=== PATIENT | male | born 1995 ===

== ENCOUNTER 2025-01-06 07:14 | Outpatient (REF) | payer OTHER, SELFPAY ==
--- OUTSIDE RECORDS SUMMARY | 2025-01-06 08:39 | XMS_ITS | Clinical Summary ---
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 Role Phone Unavailable Primary Care Provider Unavailabl e Encounters Date Type Department Care Team Description 10/23/2024 Telephone [facility] [address] [place] [address] Iraj Jimenez MD from Last 3 Months Social History Tobacco Use Types Packs/Day Years Used Date Smoking Tobacco: Never Assessed Sex and Gender Information Value Date Recorded Sex Assigned at Male 05/15/2024 2:16 PM EDT Legal Sex Male 2:15 PM EDT Gender Identity Male 05/15/2024 2:16 PM EDT Sexual Orientation Not on file Plan of Treatment Health Maintenance Due Date Last Done Comments Depression Screening 1995 HIV Screening 1995 SDOH Screening 1995 Alcohol/Substance Use Screening 2007 Tobacco Screening 2007 Family Planning (PISQ) 2010 Hepatitis C Screening 2013 DTaP/Tdap/Td Vaccines (1 - Tdap) 2014 Hepatitis B Vaccines (1 of 3 - 19+ 3-dose series) 2014 COVID-19 Vaccine (1 - 2023-2 5 season) 2024 Influenza Vaccine (#1) 2024 Zoster Vaccines (1 of 2) 2045 RSV Patients and Pa tients Aged 60 years or older (1 - 1-dose 75+ series) 2070 HIB Vaccines Aged Out No longer eligi ble based on patient's age to complete this topic HPV Vaccines Aged Out No longer eligi ble based on patient's age to complete this topic Hepatitis A Vaccines Aged Out No long er eligible based on patient's age to complete this topic IPV Vaccines Aged Out No longer eligi ble based on patient's age to complete this topic Meningococcal Vaccine Aged Out No aleta eloise eligible based on patient's age to complete this topic Pneumococcal Vaccine: Pediat rics (0 to 5 Years) and At-Risk Patients (6 to 49) Years) Aged Out No longer eligible b ased on patient's age to complete this topic RSV under 20 months Aged Out No longe r eligible based on patient's age to complete this topic Rotavirus Vaccines Aged Out No longer eligible based on patient's age to complete this topic
--- OUTSIDE RECORDS SUMMARY | 2025-01-06 08:39 | XMS_ITS | Clinical Summary ---
Author Organization [facility] Address [address] [place] [address] Care Team Providers Care Shoe Lacer Name Role Phone Jorge Delvalle PA-C Primary [...] 02/02/2023, 06/11/2021 Syphilis Screening 02/03/2024 02/02/2023, 06/11/2021 [id number] ( season) 2024 07/21/2022, 07/01/2021, 12/04/2020, Additional [...] HEPATITIS C ANTIBODY NON-REACT ARIANA NON-REACT ARIANA [employer] SIGNAL TO CUT-OFF 0.16 <1.00 [employer] Comment: HCV antibody was non-reactive. There is no laboratory evidence of HCV infection. In most cases, no further action is required. However, if recent HCV exposure is suspected, a test for HCV RNA (test code 82818) is suggested. For additional information please refer to http://education.Moleculin/faq/JYQ84h1 (This link is being provided for informational/ educational purposes only.) Blood Blood / Unknown 02/02/2023 1 0:33 AM EDT 02/02/2023 10:34 AM EDT Narrative [employer] [facility] - 02/03/2023 5:14 AM EDT FASTING:YES [facility] [[email or web address]]or Wyatt Laila FNP LAB - BLOOD DRAW E dited Result - Final Performing Organization Address [facility] de Phone Number [employer] [address] [address], [employer] [address] [address] * SYPHILIS ANTIBODY CASCADING REFLEX (02/02/2023 10:33 AM EDT) T. PALLIDUM AB, EIA NEGATIVE NEGATIVE [employer] [facility] Comment: No antibodies to T. pallidum (the agent causing syphilis) were detected in the specimen. This result, however, does not exclude very recent T. pallidum infection; testing of a second specimen, collected 2-4 weeks after this specimen, is recommended if the index of suspicion for recent infection is high. Blood Blood / Unknown 02/02/2023 1 0:33 AM EDT 02/02/2023 10:34 AM EDT [facility] [employer] [facility] - 02/03/2023 5:14 AM EDT FASTING:YES [facility] - BLOOD DRAW F inal Result Performing Organization Address [facility] de Phone Number [employer] [address] [address], [employer] [address] [address] * HIV 1/2 AG & AB W/RFLX (4TH GEN) (02/02/2023 10:33 AM EDT) HIV AG/AB, 4TH GEN NON-REAC TIVE NON-REAC TIVE [employer] [facility] Comment: HIV-1 antigen and HIV-1/HIV-2 antibodies [...] ?? For additional information please refer to http://education.Moleculin/faq/UIY706 (This link is being provided for informational/ educational purposes only.) The performance of this assay has not been clinically validated in patients less than 2 years old. Blood Blood / Unknown 02/02/2023 1 0:33 AM EDT 02/02/2023 10:34 AM EDT Narrative [employer] - 02/03/2023 5:14 AM EDT FASTING:YES us Guy Ulloa [facility] LAB - BLOOD DRAW F inal Result Performing Organization Address City/[facility]/ZIP Co de Phone Number [facility] [address] [place] [address], [employer] [address] [address] * HEPATITIS B SURF ANTIBODY HBSAB (02/02/2023 10:33 AM EDT) HEPATITIS B SURFACE ANTIBODY QL NON-REACT ARIANA NON-REACT ARIANA [employer] [facility] Blood Blood / Unknown 02/02/2023 1 0:33 AM EDT 02/02/2023 10:34 AM EDT Narrative [employer] - 02/03/2023 5:14 AM EDT FASTING:YES us Guy Ulloa [employer] LAB - BLOOD DRAW E dited Result - Final Performing Organization Address City/[facility]/ZIP Co de Phone Number [facility] [address] [place] [address], [employer] [address] [address] from Last 3 Months or Most Recently Relevant to Health Maintenance Care Teams Shoe Lacer Relationship Specialty Start Date End Date Jorge Delvalle PA-C [address] [place] [address] PCP - General FAMILY MEDICINENUBIA 06/10/21
[2025-01-06 08:44] LABS: MANUAL DIFF FLAG NO
[2025-01-06 08:54] LABS: Basophils Percent Auto 0.6 % (0-2); Eosinophils Absolute Auto 0.1 X10*3/uL (0.0-0.4); Eosinophils Percent Auto 2.3 % (0-4); Hematocrit 43.1 % (42.0-52.0); Hemoglobin 14.7 g/dl (14.0-18.0); Imm Gran Abs Auto 0.01 X10*3/uL (0.00-0.03); Imm Gran Pct Auto 0.2 % (0.0-0.4); Lymphocytes Absolute Auto 1.5 X10*3/uL (1.2-4.9); Lymphocytes Percent Auto 30.7 % (20-40); Mean Corpuscular HGB Conc 34.1 g/dl (31.0-36.0); Mean Corpuscular Hemoglobin 29.3 pg (27.0-33.0); Mean Platelet Volume 9.6 fL (9.4-12.4); Monocytes Absolute Auto 0.4 X10*3/uL (0.1-1.2); Monocytes Percent Auto 8.6 % (2-11); Neutrophils Absolute Auto 2.7 x10*3/uL (2.0-8.3); Neutrophils Percent Auto 57.6 % (45-73); Platelet Count 249 X10*3/uL (160-400); Red Blood Count 5.01 X10*6/uL (4.60-5.80); White Blood Count 4.8 X10*3/uL (4.8-10.8)
[2025-01-06 09:17] LABS: Alanine Aminotransferase 32 U/L (0-40); Albumin Level 4.5 g/dL (3.5-5.0); Alkaline Phosphatase 73 U/L (39-117); Anion Gap 12 (12-20); Aspartate Amino Transferase 34 U/L (5-37); Bilirubin Total 0.5 mg/dL (0.0-1.0); Blood Urea Nitrogen 14 mg/dL (9-16); Calcium 9.4 mg/dL (8.4-10.2); Carbon Dioxide 28 mmol/L (22-29); Chloride 107 mmol/L (96-108); Cholesterol 175 mg/dL (<200); Estimated Glomerular Filt Rate > 60; Glucose Fasting 94 mg/dL (60-99); HDL Cholesterol 40 mg/dL (>40); LDL Cholesterol Calculated 118 mg/dL (<100); Potassium 4.6 mmol/L (3.3-5.1); Sodium 142 mmol/L (135-145); Triglycerides 88 mg/dL (<150)
[2025-01-06 09:38] LABS: HIV AB/AG Nonreactive (Nonreactive); HIV Num 1 0.08 S/CO (0.00-0.99)
== END 2025-01-06 07:15 | disposition home or self-care (01) ==
LOC: HO.LAB 07:14
PROVIDERS: PCP Internal Medicine; Visit Provider Internal Medicine
DX: Z00.00 Encounter for general adult medical examination without abnormal findings (principal); F33.0 Major depressive disorder, recurrent, mild; G44.52 New daily persistent headache (NDPH); E78.5 Hyperlipidemia, unspecified; N48.89 Other specified disorders of penis; M79.675 Pain in left toe(s); M79.674 Pain in right toe(s); Z11.4 Encounter for screening for human immunodeficiency virus [HIV]
CPT/HCPCS: 36415; 80053; 80061; 85025; 87389; 96127

== ENCOUNTER 2025-01-06 07:14 | Outpatient (AMB) | payer OTHER, SELFPAY ==
--- OUTSIDE RECORDS SUMMARY | 2025-01-06 07:17 | XMS_ITS | Clinical Summary ---
Author Organization [facility] Address [address] [place] [address] Care Team Providers Care Boom Pump Operator Name Role Phone Jorge Delvalle PA-C Primary Care Provider Source Comments PLEASE NOTE, if this patient is a minor, it may be UNLAWFUL to discuss sensitive information that is contained in these records (such as FAMILY PLANNING, MENTAL HEALTH or SUBSTANCE ABUSE) with the minor patient's parent or other person without the patient's specific authorization.[facility] Allergies No known active allergies Medications No known medications Active Problems No known active problems Immunizations Immunization Administration Dates Next Due Flu, Cell Culture based, Pre servative Free, 6m+, Flucelvax 06/01/2021,06/27/2019 HPV 9 (Gardasil) 08/30/2021 Moderna COVID-19 Vaccine, re d cap blue label, 12+ Primary Series 07/01/2021,12/04/2020,11/07/2020 TDAP 08/30/2021 Family History Medical History Relation Name Comments Thyroid Disease Brother Cardiovascular disease Father has d efibirllator Diabetes Father Breast cancer Maternal Aunt Hypertension Mother Thyroid Disease Mother Breast cancer Paternal Aunt Thyroid Disease Sister Relation Name Status Comments Brother Father Maternal Aunt Mother Paternal Aunt Sister Social History Tobacco Use Types Packs/Day Years Used Date Smoking Tobacco: Never Smokeless Tobacco: Never Tobacco Cessation:Counseling Given: Not Answered Alcohol Use Standard Drinks/Week Comments Yes 0 (1 standard drink = 0.6 oz pur e alcohol) only on weekends Social Connections Answer Date Recorded Connectedness 0 02/02/2023 Financial Resource Strain Answer Date R ecorded Financial Resource Strain 0 2022 Stress Answer Date Recorded Stress 0 02/02/2023 Physical Activity Answer Date Recorded Physical Activity 0 11/07/2020 Food Insecurity Answer Date Recorded Food 0 02/02/2023 Transportation Needs Answer Date Record ed Transportation 0 02/02/2023 Housing Stability Answer Date Recorded Housing 0 02/02/2023 Safety and Environment Answer Date Alan rded Safety 0 02/02/2023 Utilities Answer Date Recorded Utilities 0 02/02/2023 Employment Answer Date Recorded Employment 0 11/07/2020 Sex and Gender Information Value Date Recorded Sex Assigned at Male 06/10/2021 1:00 PM PDT Legal Sex Male 1:55 PM PST Gender Identity Male 06/10/2021 1:00 PM PDT Sexual Orientation [place] 06/10/2021 1: 00 PM PDT 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 Not on file Not on file Last Filed Vital Signs Vital Sign Reading Time Taken Comments Blood Pressure 106/72 02/02/2023 9:52 AM EDT Pulse 72 02/02/2023 9:52 AM EDT Temperature 36.7 ??C (98 ??F) 02/18/2022 10:46 AM EDT Respiratory Rate 16 02/02/2023 9:52 AM EDT Oxygen Saturation 99% 02/02/2023 9:52 AM EDT Inhaled Oxygen Concentration - - Weight 72.1 kg (159 lb) 02/02/2023 9:52 AM EDT Height 167.6 cm (5' 6 ) 02/02/2023 9:52 AM EDT Body Mass Index 25.66 02/02/2023 9:52 AM EDT Plan of Treatment Health Maintenance Due Date Last Done Comments Anxiety Screening 1995 Tobacco Screening 1995 Imm-Hepatitis A (1 of 2 - Ri sk 2-dose series) 2014 Imm-Hepatitis B (1 of 3 - 19 + 3-dose series) 2014 Annual Preventive Care Visit 02/03/2024 02/02/2023, 08/30/2021 HIV Screening 02/03/2024 02/02/2023, 06/11/2021 Syphilis Screening 02/03/2024 02/02/2023, 06/11/2021 Pof-[id number] ( season) 2024 07/21/2022, 07/01/2021, 12/04/2020, Additional history exists Imm-Influenza (#1) 2024 05/31/2022, 0 06/01/2021, 06/27/2019 Alcohol and Drug Screen 09/04/2024 02/03/20 23, 02/18/2022, 06/10/2021 Depression Annual Screen 09/04/2024 02/02/2023 Hypertension Screening (#1) 02/01/2026 Imm-DTaP/Tdap/Td (2 - Td or Tdap) 08/30/2031 Hepatitis B Screening Completed 02/02/2023, Hepatitis C Screening Completed 02/02/2023, Procedures Procedure Name Priority Date/Time Associated Diagnosis Comments HIV 1/2 AG & AB W/RFLX (4TH GEN) Routine 02/02/2023 10:33 AM EDT Examination, medical, general SYPHILIS ANTIBODY CASCADING REFLEX Routine 02/02/2023 10:33 AM EDT Examination, medical, general HEPATITIS B SURF ANTIBODY HBSAB Routine 02/02/2023 10:33 AM EDT Examination, medical, general HEPATITIS C AB W/RFLX HCV RNA, QT, RT PCR Routine 02/02/2023 10:33 AM EDT Examination, medical, general from Last 3 Months or Most Recently Relevant to Health Maintenance Results * HEPATITIS C AB W/RFLX HCV RNA, QT, RT PCR (02/02/2023 10:33 AM EDT) HEPATITIS C ANTIBODY NON-REACT ARIANA NON-REACT ARIANA [facility] SIGNAL TO CUT-OFF 0.16 <1.00 [facility] Comment: HCV antibody was non-reactive. There is no laboratory evidence of HCV infection. In most cases, no further action is required. However, if recent HCV exposure is suspected, a test for HCV RNA (test code 84701) is suggested. For additional information please refer to http://education.[employer]/faq/LOY83p0 (This link is being provided for informational/ educational purposes only.) Blood Blood / Unknown 02/02/2023 1 0:33 AM EDT 02/02/2023 10:34 AM EDT Narrative [employer] [facility] - 02/03/2023 5:14 AM EDT FASTING:YES [facility] F[facility] LAB - BLOOD DRAW E dited Result - Final Performing Organization Address [facility] de Phone Number [facility] [address] [address], [facility] [address] [phone] * SYPHILIS ANTIBODY CASCADING REFLEX (02/02/2023 10:33 AM EDT) T. PALLIDUM AB, EIA NEGATIVE NEGATIVE [employer] [facility] Comment: No antibodies to T. pallidum (the agent causing syphilis) were detected in the specimen. This result, however, does not exclude very recent T. pallidum infection; testing of a second specimen, collected 2-4 weeks after this specimen, is recommended if the index of suspicion for recent infection is high. Blood Blood / Unknown 02/02/2023 1 0:33 AM EDT 02/02/2023 10:34 AM EDT [facility] [employer] [facility] - 02/03/2023 5:14 AM EDT FASTING:YES [facility] B[facility] DRAW F inal Result Performing Organization Address [facility] de Phone Number [facility] [address] [address], [facility] [address] [address] * HIV 1/2 AG & AB W/RFLX (4TH GEN) (02/02/2023 10:33 AM EDT) HIV AG/AB, 4TH GEN NON-REAC TIVE NON-REAC TIVE [facility] Comment: HIV-1 antigen and HIV-1/HIV-2 antibodies were not detected. There is no laboratory evidence of HIV infection. PLEASE NOTE: This information has been disclosed to you from records whose confidentiality may be protected by state law. ??If your state requires such protection, then the state law prohibits you from making any further disclosure of the information without the specific written consent of the person to whom it pertains, or as otherwise permitted by law. A general authorization for the release of medical or other information is NOT sufficient for this purpose. ?? For additional information please refer to http://education.[employer]/faq/TCJ856 (This link is being provided for informational/ educational purposes only.) The performance of this assay has not been clinically validated in patients less than 2 years old. Blood Blood / Unknown 02/02/2023 1 0:33 AM EDT 02/02/2023 10:34 AM EDT Narrative [facility] - 02/03/2023 5:14 AM EDT FASTING:YES us Guy Ulloa [facility] LAB - BLOOD DRAW F inal Result Performing Organization Address City/[facility]/ZIP Co de Phone Number [facility] [address] [place] [phone], [facility] [address] [address] * HEPATITIS B SURF ANTIBODY HBSAB (02/02/2023 10:33 AM EDT) HEPATITIS B SURFACE ANTIBODY QL NON-REACT ARIANA NON-REACT ARIANA [employer] [facility] Blood Blood / Unknown 02/02/2023 1 0:33 AM EDT 02/02/2023 10:34 AM EDT Narrative [employer] - 02/03/2023 5:14 AM EDT FASTING:YES us Guy Ulloa [facility] LAB - BLOOD DRAW E dited Result - Final Performing Organization Address City/[facility]/ZIP Co de Phone Number [facility] [address] [place] [phone], [facility] [address] [phone] from Last 3 Months or Most Recently Relevant to Health Maintenance Care Teams Boom Pump Operator Relationship Specialty Start Date End Date Jorge Delvalle PA-C [address] [place] [address] PCP - General [facility]ILY MEDICIN[facility] 06/10/21
[2025-01-06 07:41] VITALS: BP 108/70; BMI 26.5
--- NOTE | 2025-01-06 07:41 | MHC.PC.OV ---
Vital Signs 01/06/25 07:41 Height 5 ft 7.32 in Weight 171 lb BMI 26.5 BP 108/70 Blood Pressure Location Lt brachial Position Sitting Intake Visit Reasons: New Appt New Patient requesitng an PE Viscose Department Worker Required: No Accompanied by: Self / Same As Patient Allergies No Known Allergies Allergy (Verified 01/06/25 07:51) Medication List - Last Reconciled 01/06/25 by Micki Torres MD No Known Home Meds Tobacco use date assessed: 01/06/25 Dental Screening Dental Screen Date: 01/06/25 Did you have a dental visit in the last 12 months?: Yes Did you have a dental problem in the last 6 months where you did not have access to dental care?: No Was dental information given to patient?: Patient has dentist HPI HPI Comments History of Present Illness Details The patient is a 29-year-old male presenting with persistent headaches and mild depression for new patient physical exam. He reports that the headaches began following an episode of influenza in October, which was severe enough to warrant emergency care. The headaches are described as severe and generalized, severely affecting his ability to concentrate and perform daily activities. Associated symptoms include nausea and blurry vision. The headaches are daily and incapacitating at times, leading to missed work. In addition, the patient reports mild depression, with a PHQ-9 score reflecting this. The depression is related to a recent breakup, though it does not significantly impact his daily responsibilities. The patient's past medical history includes childhood asthma, though he denies recent asthma exacerbations. He does not smoke and drinks alcohol only on special occasions. Family history reveals several chronic conditions: his mother suffers from hypertension, thyroid problems, and chronic kidney disease, among others; his father has diabetes, arthritis, and heart conditions managed with a pacemaker.- MRI of the head was discussed to investigate persistent headaches. - Cholesterol, blood sugar, renal and liver function screenings were recommended. - Assessment of urologic health was suggested due to reported discomfort. - Tetanus vaccination status was reviewed, presumed updated approximately 5-6 years ago at previous employment. [facility] Surgical History No pertinent past surgical history Family History (Updated 01/06/25 @ 07:58 by Micki Torres MD) Mother Hypothyroidism Hypertension Carpal tunnel syndrome Gout CKD (chronic kidney disease) Father Diabetes Glaucoma CKD (chronic kidney disease) Pacemaker CHF (congestive heart failure) Social History Housing: House Alcohol intake: current Alcohol intake frequency: holidays/special occasions only Alcohol type: beer and wine Patient Tobacco Use Status: Never used Tobacco e-Cigarette/Vaping Use: Never Used Second Hand Smoke Exposure: No service: No Current occupational status: employed Current occupational exposures/hazards: No Cognitive needs: No Hearing needs: No Vision needs: No Questionnaire PHQ-9 Over the last 2 weeks, how often have you been bothered by any of the following problems? 1. Little interest or pleasure in doing things: not at all 2. Feeling down, depressed, or hopeless: not at all 3. Trouble falling or staying asleep, or sleeping too much: not at all 4. Feeling tired or having little energy: more than half the days 5. Poor appetite or overeating: several days 6. Feeling bad about yourself - or that you are a failure or have let yourself or your family down: not at all 7. Trouble concentrating on things, such as reading the newspaper or watching television: more than half the days 8. Moving or speaking so slowly that other people could have noticed. Or the opposite - being so fidgety or restless that you have been moving around a lot more than usual: several days 9. Thoughts that you would be better off or of hurting yourself in some way: not at all Total score: 6 Depression Screening Interpretation: Positive Depression Screening Follow-up: Existing condition, New Medication prescribed and Follow-up Visit Requested Depression Screening Done: Yes 58635 - PHQ-9 Billing: Yes Source: Developed by Drs. Wyatt Nash, Gabi Barfield, George Adair and colleagues, with an educational vinicio from [employer]. Thrive Questionnaire Date Thrive assessed: 01/06/25 I am a: Patient What is your living situation today?: I have a steady place to live Within the past 12 months, did the food you bought not last and you didn't have the money to get more?: I choose not to answer this question Within the past 12 months, did you worry whether your food would run out before you got money to buy more?: I choose not to answer this question Do you have trouble paying for medicines?: I choose not to answer this question Do you have trouble getting transportation to medical appointments?: I choose not to answer this question Do you have trouble paying your heating and electricity bill?: I choose not to answer this question Do you have trouble taking care of your child, family member or friend?: I choose not to answer this question Do you have trouble with day-to-day activities such as bathing, preparing meals, shopping, managing finances, etc.?: I choose not to answer this question Are you currently unemployed and looking for a job?: I choose not to answer this question Are you interested in more education?: I choose not to answer this question Please select the resources that you would like help with: None Currently or been in a relationship where the following occur: I choose not to answer THRIVE Score: 0 AUDIT C Alcohol Use Questionnaire (AUDIT-C) 1. How often do you have a drink containing alcohol?: Monthly or less 2. How many drinks containing alcohol do you have on a typical day when you are drinking?: 3 or 4 3. How often do you have six or more drinks on one occasion?: Never Total Score: 2 Score Reviewed/Action Taken: No TIEN-7 AMB Questionnaire TIEN-7 Date TIEN - 7 assessed: 01/06/25 Feeling nervous, anxious, or on edge: 0 = Not at all Not being able to stop or control worryin = Not at all Worrying too much about different things: 0 = Not at all Trouble relaxin = Not at all Being so restless that it is hard to sit still: 1 = Several days Becoming easily annoyed or irritable: 0 = Not at all Feeling afraid as if something awful might happen: 0 = Not at all Total TIEN-7 score (0-4 normal; 5-9 mild; 10-14 moderate; 15-21 severe): 1 Source: Developed by Drs. Wyatt Nash, Gabi Barfield, George Adair and colleagues, with an educational vinicio from [employer]. TIEN-7 Assessment Billing TIEN-7 Assessment Tool: TIEN-7 Assessment 96838 Review of Systems Const All systems reviewed & are unremarkable except as noted in HPI and below Card Denies chest pain at rest, Denies chest pain with activity, Denies edema, Denies irregular heart rhythm, Denies claudication, Denies dyspnea, Denies dyspnea on exertion, Denies orthopnea, Denies paroxysmal nocturnal dyspnea and Denies slow heart rate Resp Denies cough, Denies dyspnea and Denies dyspnea on exertion GI Denies abdominal pain, Denies change in bowel habits, Denies excessive flatus, Denies nausea and Denies vomiting Denies urinary hesitancy, Denies urinary incontinence and Denies urinary urgency Musc Denies abnormal gait, Denies atrophy, Denies deformity and Denies limited range of motion Skin/Breast Denies bleeding lesions, Denies changing lesions and Denies rash Neuro Denies abnormal gait and Denies lack of coordination Physical exam (Primary Care) Vital Signs: Last Vital Signs BP 108/70 01/06/25 07:41 BMI result Body Mass Index 26.5 Tobacco/Smoking Status: Tobacco use Status Tobacco use date assessed 01/06/25 01/06/25 07:48 Patient Tobacco Use Status Never used Tobacco 01/06/25 07:48 e-Cigarette/Vaping Use Never Used 01/06/25 07:48 PHQ-9: PHQ-9 Score PHQ-9: Total score 6 01/06/25 07:48 Depression Screening Interpretation: Positive Depression Screening Follow-up: Existing condition, New Medication prescribed and Follow-up Visit Requested Thrive Assessment: Date of Thrive Assessment Date Thrive assessed 01/06/25 01/06/25 07:48 Currently or been in a relationship where the following occur: I choose not to answer [facility] Head: Yes normal to inspection, Yes normocephalic and Yes atraumatic Ears: external ears normal Eyes General: appearance normal, both eyes and all related structures Eyelids: Yes eyelids normal Conjunctivae: conjunctivae normal Neck Neck: Yes normal visual inspection and Yes supple Resp Effort & Inspection: normal respiratory effort Auscultation: clear to auscultation bilaterally Cardio Jugular venous distension: no JVD Rate: regular rate Rhythm: regular rhythm Heart sounds: S1 normal heart sound present and S2 normal heart sound present GI Inspection: Yes normal to inspection Palpation (GI): Soft to palpation and nontender Auscultation: normal bowel sounds Skin General skin exam: no rashes or lesions noted Neuro General: no focal motor deficits Extrem General: Yes full ROM Psych Appearance: grossly normal Coding Level of Care Code New Pt Level 4 (38862) New Pt Prev Care 18-39yr(71955 Diagnoses Physical exam Z00.00 Mild recurrent major depression F33.0 New daily persistent headache G44.52 Pain around toenail M79.676 Pain in penis N48.89 Additional Codes PHQ-9 - 29690 - PHQ-9 Billing: Yes ([id number]) TIEN-7 Assessment Billing - TIEN-7 Assessment Tool: TIEN-7 Assessment 30854 ([id number]) Time Spent (min) 35 Assessment & Plan Assessment & Plan (1) Physical exam: Code(s): Z00.00 - Encounter for general adult medical examination without abnormal findings Category: Medical (2) Mild recurrent major depression: Code(s): F33.0 - Major depressive disorder, recurrent, mild Category: Medical (3) New daily persistent headache: Code(s): G44.52 - New daily persistent headache (NDPH) Category: Medical (4) Pain around toenail: Code(s): M79.676 - Pain in unspecified toe(s) Category: Medical (5) Pain in penis: Code(s): N48.89 - Other specified disorders of penis Category: Medical Plan We will proceed with an MRI of the head to assess the structural causes behind the patient's post-influenza headaches. A medication that assists with both mild depression and migraine prevention will be started at a low dose. The patient is advised to undergo screening for cholesterol, glucose, and renal and liver function due to family medical history. A urology consult is advised for further evaluation of his symptoms. The patient's tetanus vaccination status seems current, but will be verified to avoid gaps in protection. Patient was informed and verbally consented to the use of an ambient scribe for clinic note documentation during this visit. I discussed with the patient the potential for migraine due to the nature and persistence of his headaches, exacerbated by a recent influenza episode. We agreed on conducting an MRI to rule out any concerning causes. The medication suggested could also address his mild depression and improve sleep quality, offering him a multi-benefit approach. We reviewed the benefits and risks of medication, emphasizing the importance of monitoring both the effectiveness on headaches and any impact on mood. Due to his family's medical history, we emphasized preventative screening tests. We outlined the necessity of updating vaccinations and agreed to verify his tetanus status. The patient was encouraged to seek a urological evaluation to further investigate his symptoms and follow up as necessary. Orders: Orders MR head/brain wo con Today G44.52 - New daily persistent headache (NDPH) Lipid Panel Today E78.5 - Hyperlipidemia, unspecified, Z00.00 - Encounter for general adult medical examination without abnormal findings Comprehensive [place]. Panel Fast Today Z00.00 - Encounter for general adult medical examination without abnormal findings Complete Blood Count Auto Diff Today G44.52 - New daily persistent headache (NDPH) HIV Ab/Ag Today Z11.4 - Encounter for screening for human immunodeficiency virus [HIV] Referrals Podiatry Referral M79.676 - Pain in unspecified toe(s) Urology Referral N48.89 - Other specified disorders of penis Medications: New sumatriptan succinate do not exceed 8 doses per 24 hrs 25 mg PO Q2-4H 30 days PRN 9 tabs 0RF migraine headache G44.52 - New daily persistent headache (NDPH) amitriptyline 10 mg PO BEDTIME 30 days 30 tabs 6RF F33.0 - Major depressive disorder, recurrent, mild, G44.52 - New daily persistent headache (NDPH) Patient Instructions: - Complete the MRI of the head as scheduled. - Take the prescribed headache/mood medication as directed. - Schedule and complete lab tests for cholesterol, blood sugar, liver, and kidney function. - Maintain a schedule for the urology appointment. - Stay aware of any changes in symptoms or new developments, and follow up accordingly. - Ensure tetanus vaccination is current; update if necessary. - Return for any concerning symptoms or if conditions worsen.
== END 2025-01-06 08:10 | disposition home or self-care (01) ==
LOC: HO.HMCH 07:15
PROVIDERS: PCP Internal Medicine; Visit Provider Internal Medicine
DX: Z00.00 Encounter for general adult medical examination without abnormal findings (principal); F33.0 Major depressive disorder, recurrent, mild; G44.52 New daily persistent headache (NDPH); N48.89 Other specified disorders of penis; M79.675 Pain in left toe(s); M79.674 Pain in right toe(s)

== ENCOUNTER → 2025-01-21 07:18 | Outpatient (BNV) | payer OTHER, SELFPAY | PROVIDERS: PCP Internal Medicine; Visit Provider Radiology Diagnostic Radiology | DX: G44.52 New daily persistent headache (NDPH) (principal) | CPT/HCPCS: 70551 ==

== ENCOUNTER 2025-01-21 07:22 | Outpatient (REF) | payer OTHER, SELFPAY ==
--- NOTE | ~2025-01-21 | MR_ITS ---
EXAMINATION: MR BRAIN WITHOUT IV CONTRAST HISTORY: G44.52 - New daily persistent headache (NDPH) TECHNIQUE: Sagittal T1 and FLAIR, and axial T1, FLAIR, T2, gradient echo, and diffusion weighted MR images of the brain were obtained. COMPARISON: None FINDINGS: There is a developmental venous anomaly in the right frontal lobe. The brain parenchyma is otherwise unremarkable, demonstrating normal alexander/white differentiation. No foci of abnormal signal intensity are identified. The ventricular system is normal in size and configuration. There is no mass effect or midline shift. No intra or extra-axial fluid collections are identified. There are no foci of restricted diffusion. Normal vascular flow voids are noted in the basilar and carotid arteries. The visualized paranasal sinuses are clear. 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 Otherwise unremarkable MRI of the brain without contrast. Electronically signed by: Wyatt Monsivais MD 01/21/2025 08:37 AM EDT
--- OUTSIDE RECORDS SUMMARY | 2025-01-21 07:24 | XMS_ITS | Clinical Summary ---
Author Organization [employer] Address [address] [place] [address] Care Team Providers Care Director Of Product Marketing Name Role Phone Unavailable Primary Care Provider Unavailabl e Social History Tobacco Use Types Packs/Day Years [...] - 19+ 3-dose series) 2014 COVID-19 Vaccine ( - 2023-2 5 season) 2024 Influenza Vaccine [...] patient's age to complete this topic Meningococcal B Vaccine Aged Out No l onger eligible based on patient's age to complete [...]
--- OUTSIDE RECORDS SUMMARY | 2025-01-21 07:25 | XMS_ITS | Clinical Summary ---
Author Organization [facility] Address [address] [place] [address] Care Team Providers Care Measurement Department Chief Clerk Name Role Phone Jorge Delvalle PA-C Primary [...] Health Maintenance Due Date Last Done Comments Tobacco Screening 1995 Imm-Hepatitis A (1 of 2 - Ri sk 2-dose series) 2014 Imm-Hepatitis B (1 of 3 - 19 + 3-dose series) 2014 Anxiety Screening 06/10/2022 06/10/2021 Annual Wellness (Adult): Ind icated (All Coverage) 02/03/2024 02/02/2023, 08/30/2021 HIV Screening 02/03/2024 02/02/2023, 06/11/2021 Syphilis Screening 02/03/2024 02/02/2023, 06/11/2021 [id number] ( season) 2024 07/21/2022, 07/01/2021, 12/04/2020, Additional [...] HEPATITIS C ANTIBODY NON-REACT ARIANA NON-REACT ARIANA [employer] [facility] SIGNAL TO CUT-OFF 0.16 <1.00 [employer] [facility] Comment: HCV antibody was non-reactive. There is no laboratory evidence of HCV infection. In most cases, no further action is required. However, if recent HCV exposure is suspected, a test for HCV RNA (test code 82941) is suggested. For additional information please refer to http://education.Betable.[employer]faq/EQZ37s9 (This link is being provided for informational/ educational purposes only.) Blood Blood / Unknown 02/02/2023 1 0:33 AM EDT 02/02/2023 10:34 AM EDT Narrative [employer] [facility] - 02/03/2023 5:14 AM EDT FASTING:YES [facility] - [facility]LOOD DRAW E dited Result - Final Performing Organization Address [facility] Co de Phone Number [employer] [address] [address], [employer] [address] [address] * SYPHILIS ANTIBODY CASCADING REFLEX (02/02/2023 10:33 AM EDT) T. PALLIDUM AB, EIA NEGATIVE NEGATIVE [employer] [facility] Comment: No antibodies to T. [...] 0:33 AM EDT 02/02/2023 10:34 AM EDT [facility] [employer] [facility] - 02/03/2023 5:14 AM EDT FASTING:YES [facility] Wyatt Laila FNP LAB - BLOOD DRAW F inal Result Performing Organization Address [facility] Co de Phone Number [employer] [address] [address], [employer] [address] [address] * HIV 1/2 AG & AB W/RFLX (4TH GEN) (02/02/2023 10:33 AM EDT) HIV AG/AB, 4TH GEN NON-REAC TIVE NON-REAC TIVE [employer] [facility] Comment: HIV-1 antigen and HIV-1/HIV-2 antibodies were [...] ?? For additional information please refer to http://education.Feedlooks/faq/RRI615 (This link is being provided for informational/ educational purposes only.) The performance of this assay has not been clinically validated in patients less than 2 years old. Blood Blood / Unknown 02/02/2023 1 0:33 AM EDT 02/02/2023 10:34 AM EDT Narrative [employer] - 02/03/2023 5:14 AM EDT FASTING:YES Guy Ulloa [facility] LAB - BLOOD DRAW F inal Result Performing Organization Address [facility]/ZIP Co de Phone Number [employer] [address] [place] [address], [email or web address] [address] [address] * HEPATITIS B SURFACE ANTIBODY (HBSAB) QUAL (02/02/2023 10:33 AM EDT) HEPATITIS B SURFACE ANTIBODY QL NON-REACT ARIANA NON-REACT ARIANA [email or web address] Blood Blood / Unknown 02/02/2023 1 0:33 AM EDT 02/02/2023 10:34 AM EDT Narrative [employer] - 02/03/2023 5:14 AM EDT FASTING:YES Guy Ulloa [facility] LAB - BLOOD DRAW E dited Result - Final Performing Organization Address [facility]/ZIP Co de Phone Number [employer] [address] [address], [email or web address] [address] [address] from Last 3 Months or Most Recently Relevant to Health Maintenance Care Teams Measurement Department Chief Clerk Relationship Specialty Start Date End Date Jorge Delvalle PA-C [address] [place] [address] PCP - General FAMILY MEDICINENUBIA 06/10/21
== END 2025-01-21 07:23 | disposition home or self-care (01) ==
LOC: HO.MRI 07:22
PROVIDERS: PCP Internal Medicine; Visit Provider Internal Medicine
DX: G44.52 New daily persistent headache (NDPH) (principal)
CPT/HCPCS: 70551

== ENCOUNTER 2025-04-01 07:53 | Outpatient (AMB) | payer OTHER, SELFPAY ==
--- NOTE | 2025-04-01 07:57 | MHC.OFFVIS ---
Intake Visit Reasons: Pain in Penis Intake Note: New Patient is present for penile pain Urology Rx:Amitriptyline Blood Thinners: none Senior Executive Compensation Analyst Required: No Accompanied by: Self / Same As Patient Allergies No Known Allergies Allergy (Verified 04/01/25 09:38) Medication List - Last Reconciled 04/01/25 by ABDULKADIR Green amitriptyline 10 mg PO BEDTIME 30 days clotrimazole-betamethasone 1-0.05 % 1 appl topical BID 4 weeks sumatriptan succinate 25 mg PO Q2-4H PRN 30 days HPI Comments Details: Ricardo is a pleasant 30-year-old male patient of Dr. Cardoza. He presents to the office today as a new patient for penile pain. In discussion with the patient today he reports a longstanding history of penile pain with erections. He reports pain upon retraction of penile foreskin when he has an erection. He reports when his penis is not in erectile state he has no bothersome penile pain and or urinary issues. In assessment of the patient today the penis is uncircumcised. There is a gile-zr-felulqic irritation noted to the penile foreskin. Upon retraction of penile foreskin the head of the penis also appears irritated. There is no open areas and or drainage noted. We did discuss balanitis. We also discussed proper care. He also reports noting a longstanding history of Peyronie's with a deviation/curvature to the penis when it is erect to the left side. We did discussed potential causes of balanitis as well as further treatment options. In office urinalysis results reviewed with the patient today. He denies urinary urgency, urinary frequency, incontinence, nocturia, hematuria, dysuria, foul smelling urine, changes to urinary stream, flank pain, fever, and or chills. He is happy with her current voiding parameters. Discussion Notes I discussed with the patient that the discomfort with foreskin retraction is likely due to balanitis. We talked about starting treatment with a topical cream, acknowledging that while it may provide temporary relief, it might not be a permanent solution. I also explained the potential for circumcision if symptoms persist or worsen. Regarding Peyronie's disease, I informed the patient about the protocol involving a penile pump and medications such as pentoxifylline, vitamin E, and Cialis to improve circulation and potentially correct penile curvature. I advised against starting the pump immediately due to current irritation and redness, suggesting a follow-up in six to eight weeks to reassess the condition. Plan The patient will initiate treatment with a topical cream applied twice daily to manage balanitis. Consideration for circumcision will be made if symptoms persist. For Peyronie's disease, the patient was educated on the use of a penile pump and medications, with a plan to delay initiation until irritation resolves. The patient is advised to limit soap use during showers to prevent irritation and maintain natural lubrication. A follow-up is planned in six to eight weeks to assess treatment efficacy and discuss further management for Peyronie's disease. [facility] Surgical History No pertinent past surgical history Family History (Updated 01/06/25 @ 07:58 by Micki Torres MD) Mother Hypothyroidism Hypertension Carpal tunnel syndrome Gout CKD (chronic kidney disease) Father Diabetes Glaucoma CKD (chronic kidney disease) Pacemaker CHF (congestive heart failure) Social History Housing: House Alcohol intake: current Alcohol intake frequency: holidays/special occasions only Alcohol type: beer and wine Patient Tobacco Use Status: Never used Tobacco e-Cigarette/Vaping Use: Never Used Second Hand Smoke Exposure: No service: No Current occupational status: employed Current occupational exposures/hazards: No Cognitive needs: No Hearing needs: No Vision needs: No Review of Systems Const All systems reviewed & are unremarkable except as noted in HPI and below Physical Exam Const General: cooperative, healthy appearing, comfortable, no acute distress, well developed, alert and awake Orientation/consciousness: patient oriented x3 Limitations: no limitations HEENT Head: Yes normal to inspection, Yes normocephalic and Yes atraumatic Ears: hearing grossly normal bilaterally Eyes General: appearance normal, both eyes and all related structures Neck Neck: Yes normal visual inspection and Yes trachea midline Chest Chest palpation & inspection: normal inspection of the chest Resp Effort & Inspection: normal respiratory effort and able to speak in complete sentences Cardio Rate: regular rate GI Inspection: Yes normal to inspection Other: as per HPI General: Yes no CVA tenderness Back/Spine/Pelvis Back: no CVA tenderness Skin General skin exam: no rashes or lesions noted Neuro General: patient oriented x3 Extrem General: Yes normal to inspection Psych Appearance: grossly normal and well kempt Mental Status: mental status grossly normal Speech and movement: Normal speech and movement present and Clear speech present Affect: normal affect Attitude: cooperative Thought process: Normal thought process present Thought content: Normal thought content present Insight: Fair insight present (Psych) Judgement: Fair judgement present (Psych) Results AMB Urinalysis, Automated UA Leukoctes 0 Dakota/uL Last Edit by LULU Mc on 04/01/25 09:10 UA Nitrite Negative Last Edit by LULU Mc on 04/01/25 09:10 UA Urobilinogen 0.2 mg/dL Last Edit by LULU cM on 04/01/25 09:10 UA Protein 0 mg/dL Last Edit by LULU Mc on 04/01/25 09:10 UA pH 6.0 Last Edit by Ino Roman CCM on 04/01/25 09:10 UA Blood 0 Arsh/uL Last Edit by Ino Roman CCM on 04/01/25 09:10 UA Specific [place] 1.015 Last Edit by LULU Mc on 04/01/25 09:10 UA Ketone Negative Last Edit by LULU Mc on 04/01/25 09:10 UA Bilirubin 0 mg/dL Last Edit by LULU Mc on 04/01/25 09:10 UA Glucose 0 mg/dL Last Edit by Ino Roman CCM on 04/01/25 09:10 Results Reviewed Results Reviewed: Laboratory Last Values Urine pH (Auto) 6.0 04/01/25 09:09 Specific [place] (Auto) 1.015 04/01/25 09:09 Urine Protein (Auto) 0 mg/dL 04/01/25 09:09 Glucose (UA)(Auto) 0 mg/dL 04/01/25 09:09 Urine Ketones (Auto) Negative 04/01/25 09:09 Urine Blood (Auto) 0 Arsh/uL 04/01/25 09:09 Urine Nitrite (Auto) Negative 04/01/25 09:09 Urine Bilirubin (Auto) 0 mg/dL 04/01/25 09:09 Urine Urobilinogen (Auto) 0.2 mg/dL 04/01/25 09:09 Leukocyte Esterase (Auto) 0 [place]/uL 04/01/25 09:09 Assessment & Plan Assessment & Plan (1) Balanitis: Code(s): N48.1 - Balanitis Category: Medical (2) Peyronie's disease: Code(s): N48.6 - Induration penis plastica Category: Medical Plan In office urinalysis results reviewed with the patient today; as noted above. We did discuss Peyronie's as well as balanitis; we discussed further treatment options and risks and benefits of these treatment options. All questions were answered He denies any bothersome urinary issues. He reports be happy with current voiding parameters. Start Clomitrazole-betaethasone as discussed and prescribed. We discussed proper hygiene. Information provided regarding Peyronie's disease. Follow-up in 1-3 months; or sooner with any issues, concerns, and or questions. Orders: Orders AMB Urinalysis Automated Today Z13.9 - Encounter for screening, unspecified Medications: New clotrimazole-betamethasone 1-0.05 % Apply thin coat 2 times per day 1 appl topical BID 45 grams 0RF 4 weeks N48.1 - Balanitis Coding Level of Care Code New Pt Level 4 (18280) Diagnoses Balanitis N48.1 Peyronie's disease N48.6
--- OUTSIDE RECORDS SUMMARY | 2025-04-01 07:57 | XMS_ITS | Clinical Summary ---
Author Organization [facility] Address [address] [place] [address] Care Team Providers Care Control Systems Developer Name Role Phone Jorge Delvalle PA-C Primary Care Provider [phone] Source Comments PLEASE NOTE, if this patient [...] 72 02/02/2023 9:52 AM EDT Temperature 36.7 C (98 F) 02/18/2022 10:46 AM EDT Respiratory Rate 16 [...] 02/02/2023, 06/11/2021 Syphilis Screening 02/03/2024 02/02/2023, 06/11/2021 [id number] ( season) 2024 07/21/2022, 07/01/2021, 12/04/2020, Additional history exists Alcohol and Drug Screen 09/04/2024 02/03/20, 02/18/2022, 06/10/2021 Depression Annual Screen 09/04/2024 02/02/2023 Imm-Influenza (#1) 2025 05/31/2022, 0 06/01/2021, 06/27/2019 Hypertension Screening (#1) 02/01/2026 Imm-DTaP/Tdap/Td (2 - [...] HEPATITIS C ANTIBODY NON-REACT ARIANA NON-REACT ARIANA [employer] SIGNAL TO CUT-OFF 0.16 <1.00 [employer] Comment: HCV antibody was non-reactive. There is no laboratory evidence of HCV infection. In most cases, no further action is required. However, if recent HCV exposure is suspected, a test for HCV RNA (test code 64381) is suggested. For additional information please refer to http://education.Gemmyo/faq/TEW20g0 (This link is being provided for informational/ educational purposes only.) Blood Blood / Unknown 02/02/2023 1 0:33 AM EDT 02/02/2023 10:34 AM EDT Narrative [facility] - 02/03/2023 5:14 AM EDT FASTING:YES [facility] Laila FNP LAB - BLOOD DRAW E dited Result - Final Performing Organization Address [facility] Co de Phone Number [employer] [address] [address], [employer] [address] [address] * SYPHILIS ANTIBODY CASCADING REFLEX (02/02/2023 10:33 AM EDT) T. PALLIDUM AB, EIA NEGATIVE NEGATIVE [facility] Comment: No antibodies to T. pallidum [...] AM EDT 02/02/2023 10:34 AM EDT Narrative [facility] - 02/03/2023 5:14 AM EDT FASTING:YES [facility] LAB - BLOOD DRAW F inal Result Performing Organization Address [facility] de Phone Number [employer] [address] [address], [employer] [address] [address] * HIV 1/2 AG & AB W/RFLX (4TH GEN) (02/02/2023 10:33 AM EDT) HIV AG/AB, 4TH GEN NON-REAC TIVE NON-REAC TIVE [facility] Comment: HIV-1 antigen and HIV-1/HIV-2 antibodies were not detected. There is no laboratory evidence of HIV infection. PLEASE NOTE: This information has been disclosed to you from records whose confidentiality may be protected by state law. If your state requires such protection, then the state law prohibits you from making any further disclosure of the information without the specific written consent of the person to whom it pertains, or as otherwise permitted by law. A general authorization for the release of medical or other information is NOT sufficient for this purpose. For additional information please refer to http://education.Gemmyo/faq/WWM502 (This link is being provided for informational/ educational purposes only.) The performance of this assay has not been clinically validated in patients less than 2 years old. Blood Blood / Unknown 02/02/2023 1 0:33 AM EDT 02/02/2023 10:34 AM EDT Narrative [facility] - 02/03/2023 5:14 AM EDT FASTING:YES us Guy Ulloa [facility] LAB - BLOOD DRAW F inal Result Performing Organization Address [facility]/ZIP Co de Phone Number [facility] [address] [place] [address], [facility] [address] [address] * HEPATITIS B SURFACE ANTIBODY (HBSAB) QUAL (02/02/2023 10:33 AM EDT) HEPATITIS B SURFACE ANTIBODY QL NON-REACT ARIANA NON-REACT ARIANA [facility] [facility] Blood Blood / Unknown 02/02/2023 1 0:33 AM EDT 02/02/2023 10:34 AM EDT Narrative [facility] - 02/03/2023 5:14 AM EDT FASTING:YES us Guy Ulloa [facility] LAB - BLOOD DRAW E dited Result - Final Performing Organization Address [facility]/ZIP Co de Phone Number [facility] [address] [place] [address], [employer] [address] [address] from Last 3 Months or Most Recently Relevant to Health Maintenance Care Teams Control Systems Developer Relationship Specialty Start Date End Date Jorge Delvalle PA-C [address] [place] [address] PCP - General FAMILY MEDICINENUBIA 06/10/21
--- OUTSIDE RECORDS SUMMARY | 2025-04-01 07:57 | XMS_ITS | Clinical Summary ---
Author Organization [employer] Address [address] 7t [place] [address] Care Team Providers Care Cisco Network Engineer Name Role Phone Unavailable Primary Care Provider [...] 1995 HIV Screening 1995 SDOH Screening 1995 Disability Screening 1995 Alcohol/Substance Use Screening 2007 Tobacco Screening 2007 Family Planning (PISQ) 2010 HPV Vaccines (1 - Male 3-dos e series) 2010 Hepatitis C Screening 2013 DTaP/Tdap/Td Vaccines (1 - Tdap) 2014 Hepatitis B Vaccines (1 of 3 - 19+ 3-dose series) 2014 COVID-19 Vaccine (1 - 2023-2 5 season) 2024 Influenza Vaccine (#1) 2025 Zoster Vaccines (1 of 2) 2045 RSV [...] Years) and At-Risk Patients (6 to 49) Years Aged Out No longer eligible b ased on patient's age to complete this topic RSV under 20 months Aged Out No longe r eligible based on patient's age to complete this topic Rotavirus Vaccines Aged Out No longer eligible based on patient's age to complete this topic
--- OUTSIDE RECORDS SUMMARY | 2025-04-01 07:57 | XMS_ITS | Clinical Summary ---
Author Organization [address] Address [address] [place] [phone] Phone Care Team Providers Care Superintendent Plant Name Role Phone Micki Torres MD Primary Care Provider [phone] Allergies No known active allergies Medications ciclopirox (PENLAC) 8 % solution Apply topically at bedtime. Apply over nail and surrounding skin. Apply daily over previous coat. After seven (7) days, may remove with alcohol and continue cycle. 6.6 mL 05/28/20 25 Active Encounters Date Type Department Care Team Description 02/27/2025 2:15 PM EDT Consult Orthopedic Surgery [facility] [address] [phone] Chase Aguilar DPM Pain in toes of both feet (Primary Dx); Dermatophytosis, nail from Last 3 Months Social History Tobacco Use Types Packs/Day Years Used Date Smoking Tobacco: Never Assessed Sex and Gender Information Value Date Recorded Sex Assigned at Not on file Legal Sex Male 1:46 PM EDT Gender Identity Not on file Sexual Orientation Not on file Plan of Treatment Upcoming Encounters Date Type Department Care Team (Late st Contact Info) Description 06/03/2025 8:15 AM EDT Office Visit Orthopedic Surgery [facility] [address] [phone] Chase Aguilar DPM [address] [address] Health Maintenance Due Date Last Done Comments DTaP,Tdap,and Td Vaccines (1 - Tdap) 2014 Hepatitis B Vaccines (1 of 3 - 19+ 3-dose series) 2014 Pneumococcal Vaccine: Pediat rics (0 to 5 Years) and At-Risk Patients (6 to 49 Years) (1 of 2 - PCV) 2014 COVID-19 Vaccine ( - 2023-2 5 season) 2024 HIV Screening 06/29/2024 Hepatitis C Screening 06/29/2024 Social Influencers of Health Screening 06/29/2024 Depression Screening 09/04/2024 Influenza Vaccine (#1) 2025 HIB Vaccines Aged Out No longer eligi [...] on patient's age to complete this topic MMR Vaccines Aged Out No longer eligi ble based on patient's age to complete this topic Meningococcal ACWY Vaccine Aged Out N o longer eligible based on patient's age to complete this topic Meningococcal B Vaccine Aged Out No l onger eligible based on patient's age to complete this topic RSV Immunization Patients Un erika 20 months Aged Out No longer eligible b ased on patient's age to complete this topic Varicella Vaccines Aged Out No longer eligible based on patient's age to complete this topic Insurance [facility] [place] [address] Care Teams Superintendent Plant Relationship Specialty Start Date End Date Micki Torres MD [address] [place] [address] , [address] [facility] D/B/A: Lorenza Peña In Internal Medicine DEIDRA Britt PCP - General Internal Medicine 01/31/25
== END 2025-04-01 08:35 | disposition home or self-care (01) ==
LOC: HO.HUSH 07:54
PROVIDERS: PCP Internal Medicine; Visit Provider Nurse Practitioner Family
DX: N48.1 Balanitis (principal); N48.6 Induration penis plastica; Z13.9 Encounter for screening, unspecified
CPT/HCPCS: 99204

== ENCOUNTER → 2025-04-01 07:53 | Outpatient (BNVA) | payer OTHER, SELFPAY | PROVIDERS: PCP Internal Medicine; Visit Provider Nurse Practitioner Family | DX: N48.29 Other inflammatory disorders of penis (principal) | CPT/HCPCS: 81003 ==

== ENCOUNTER 2025-06-09 08:16 | Outpatient (AMB) | payer OTHER, SELFPAY ==
--- NOTE | 2025-06-09 08:17 | A.OFFVIS_ITS ---
Vital Signs 06/09/25 08:20 06/09/25 08:25 Height 5 ft 7.32 in Weight 154 lb BMI 23.9 BP 102/76 Blood Pressure Location Rt brachial Position Sitting Pulse 98 Pulse Source Pulse Oximeter Pulse Oximetry (%) 97 Oxygen Delivery Method Room Air Intake Visit Reasons: 01/24LVM+Let INP-Abn findings Intake Note: Abnormal findings of diagnostic imaging of central nervous system Buffer Nickel Required: No Accompanied by: Self / Same As Patient Allergies No Known Allergies Allergy (Verified 06/09/25 08:22) HPI Comments Details: 30 y/o male comes for daily headaches. It started in Oct 2024 after he recovered from the flu . He wakes up everyday with headaches- describes as pressure , with occ light and noise sensitivty. No nausea , no vision issues, no abnormal sensations. He also started working from home and has neck pain since then . No radiating or shooting pain. He sleeps ok . No head injury . He denies nay mood changes MRI Brain showed a small venous anomaly in Right frontal region Tylenol 500mg helps- he tries not to take then everyday. [facility] Medical History (Updated 06/09/25 @ 09:05 by Leslie Sunshine MD) Neck pain Surgical History No pertinent past surgical history Family History Mother Hypothyroidism Hypertension Carpal tunnel syndrome Gout CKD (chronic kidney disease) Father Diabetes Glaucoma CKD (chronic kidney disease) Pacemaker CHF (congestive heart failure) Social History Housing: House Alcohol intake: current Alcohol intake frequency: holidays/special occasions only Alcohol type: beer and wine Patient Tobacco Use Status: Never used Tobacco e-Cigarette/Vaping Use: Never Used Second Hand Smoke Exposure: No service: No Current occupational status: employed Current occupational exposures/hazards: No Cognitive needs: No Hearing needs: No Vision needs: No Physical Exam Vital Signs: Last Vital Signs Pulse 98 06/09/25 08:25 BP 102/76 06/09/25 08:20 Pulse Ox 97 06/09/25 08:25 Oxygen Delivery Method Room Air 06/09/25 08:25 BMI result Body Mass Index 23.9 Const General: cooperative, healthy appearing, comfortable and no acute distress Nutritional Appearance: average body habitus Orientation/consciousness: patient oriented x3 Eyes Pupils: Equal, round and reactive pupils present Neuro Other: decreased range of motion in the neck neck tightness General: patient oriented x3, gait normal, tone normal, moves all extremities and no focal motor deficits Cranial nerves: Yes Facial sensation intact/muscles of mastication intact, Yes Equal, round and reactive pupils present, Yes Bilaterally intact EOM present, Yes Nystagmus not present, Yes Normal facial strength present, Yes Midline tongue present, Yes Symmetric palate elevation present and Yes Ability to bilaterally elevate shoulders present Cognition (Neuro): normal cognition Gait exam (Neuro): Normal gait present Deep tendon reflexes (DTR's): Right triceps reflex intensity grade: 1+, Left triceps reflex intensity grade: 1+, Rt Biceps (C5, C6): 1+, Left biceps reflex intensity grade: 1+, Right brachioradialis reflex intensity grade: 1+, Left brachioradialis reflex intensity grade: 1+, Right patellar reflex intensity grade: 1+ and Left patellar reflex intensity grade: 1+ Coordination: [id number] test normal Assessment & Plan Assessment & Plan (1) New daily persistent headache: Comment: cervicogenic Code(s): G44.52 - New daily persistent headache (NDPH) Category: Medical (2) 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
[2025-06-09 08:20] VITALS: BP 102/76; BMI 23.9
[2025-06-09 08:25] VITALS: PULSE 98; O2SAT 97
== END 2025-06-09 09:08 | disposition home or self-care (01) ==
LOC: HO.HSMS 08:17
PROVIDERS: PCP Internal Medicine; Visit Provider Psychiatry & Neurology Neurology
DX: G44.52 New daily persistent headache (NDPH) (principal); R90.89 Other abnormal findings on diagnostic imaging of central nervous system
CPT/HCPCS: 99204

== ENCOUNTER 2025-07-08 07:23 | Outpatient (AMB) | payer OTHER, SELFPAY ==
--- OUTSIDE RECORDS SUMMARY | 2025-07-08 07:24 | XMS_ITS | Clinical Summary ---
Author Organization [employer] Address [address] [place] [address] Care Team Providers Care Assistant Professor Of Nursing Name Role Phone Unavailable Primary Care Provider [...] Date Last Done Comments Depression Screening 1995 Disability Screening 1995 Alcohol/Substance Use Screening 2007 Tobacco Screening 2007 Family Planning (PISQ) 2010 HPV Vaccines (1 - Male 3-dos e series) 2010 DTaP/Tdap/Td Vaccines (1 - Tdap) 2014 Hepatitis B Vaccines (1 of 3 - 19+ 3-dose series) 2014 COVID-19 Vaccine (1 - 2023-2 5 season) 2025 Influenza Vaccine (#1) 2025 Zoster Vaccines (1 [...]
--- OUTSIDE RECORDS SUMMARY | 2025-07-08 07:24 | XMS_ITS | Clinical Summary ---
Author Organization [facility] [address] [facility] Address [address] [place] [address] Phone Care Team Providers Care Water Resource Engineer Name Role Phone Micki Torres MD Primary Care Provider [phone] Allergies No known active allergies Medications No known medications Encounters Date Type Department Care Team Description 06/03/2025 8:15 AM EDT Office Visit Orthopedic Surgery - [facility] [address] [place] [id number] Chase Aguilar, GERA Pain in toes of both feet (Primary Dx); Hammertoes of both feet from Last 3 Months Social History Tobacco Use Types Packs/Day Years Used Date Smoking Tobacco: Never Assessed Sex and Gender Information Value Date Recorded Sex Assigned at Not on file Legal Sex Male 1:46 PM EDT Gender Identity Not on file Sexual Orientation Not on file Plan of Treatment Health Maintenance Due Date Last Done Comments Hepatitis B Vaccines (1 of 3 - 19+ 3-dose series) 2014 HPV Vaccines (2 - Male 3-dos e series) 09/27/2021 08/30/2021 HIV Screening 06/29/2024 Social Influencers of Health Screening 06/29/2024 Depression Screening 09/04/2024 COVID-19 Vaccine (4 - 2024-2 6 season) 2025 07/01/2021, 12/04/2020, 11/07/2020 Influenza Vaccine (#1) 2025 , 06/27/2019 Cholesterol Screening (Lipid Panel) 02/03/2028 02/02/2023, 02/02/2023, 06/11/2021 DTaP,Tdap,and Td Vaccines (2 - Td or Tdap) 08/30/2031 08/30/2021 RSV Immunization Adult Patients (1 - 1-dose 75+ series) 2070 Hepatitis C Screening Completed 02/02/2023 HIB Vaccines Aged Out No longer eligi [...] age to complete this topic Pneumococcal Vaccine: Pediatrics (0 to 5 Years) and At-Risk Patients (6 to 49 Years) Aged Out No longer eligible b ased on patient's age to complete this topic RSV Immunization Patients Under 20 months Aged Out No longer eligible b ased on patient's age to complete this topic Varicella Vaccines Aged Out No longer eligible based on patient's age to complete this topic Insurance Care Teams Water Resource Engineer Relationship Specialty Start Date End Date Micki Torres MD [address] [place] [address] , [address] Physician Associ D/B/A: [facility] DEIDRA Britt PCP - General Internal Medicine 01/31/25
--- OUTSIDE RECORDS SUMMARY | 2025-07-08 07:24 | XMS_ITS | Clinical Summary ---
Author Organization [facility] Address [address] [place] [address] Care Team Providers Care Superintendent Concrete Mixing [employer] Name Role Phone Jorge Delvalle PA-C Primary Care Provider [phone] Source Comments PLEASE NOTE, if this patient [...] 3 - 19 + 3-dose series) 2014 Imm-HPV (2 - Male 3-dose series) 09/27/2021 08/30/20 21 Anxiety Screening 06/10/2022 06/10/2021 Annual Wellness (Adult): Ind icated (All Coverage) 02/03/2024 02/02/2023, 08/30/2021 HIV Screening 02/03/2024 02/02/2023, 06/11/2021 Syphilis Screening 02/03/2024 02/02/2023, 06/11/2021 Alcohol and Drug Screen 09/04/2024 02/03/20, 02/18/2022, 06/10/2021 Depression Annual Screen 09/04/2024 02/02/2023 [id number] ( season) 2025 07/21/2022, 07/01/2021, 12/04/2020, Additional history exists Hypertension Screening (#1) 02/01/2026 Imm-DTaP/Tdap/Td (2 - Td or Tdap) 08/30/2031 021 Hepatitis B Screening Completed 02/02/2023, 021 Hepatitis C Screening Completed 02/02/2023, 021 Imm-Influenza Completed 05/27/2025, 05/06, 06/01/2021, Additional history exists Procedures Procedure Name Priority Date/Time Associated Diagnosis [...] HEPATITIS C ANTIBODY NON-REACT ARIANA NON-REACT ARIANA [facility] SIGNAL TO CUT-OFF 0.16 <1.00 [facility] Comment: HCV antibody was non-reactive. There is no laboratory evidence of HCV infection. In most cases, no further action is required. However, if recent HCV exposure is suspected, a test for HCV RNA (test code 49791) is suggested. For additional information please refer to http://education.National Institutes of Health (NIH).[employer]/faq/CQT31t9 (This link is being provided for informational/ educational purposes only.) Blood Blood / Unknown 02/02/2023 1 0:33 AM EDT 02/02/2023 10:34 AM EDT Narrative [employer] [facility] - 02/03/2023 5:14 AM EDT FASTING:YES [employer] [facility] - BLOOD DRAW Edited R esult - Final Performing Organization Address [facility]/ZIP Co de Phone Number [employer] [address] [address], [place] [address] [address] * SYPHILIS ANTIBODY CASCADING REFLEX (02/02/2023 10:33 AM EDT) T. PALLIDUM AB, EIA NEGATIVE NEGATIVE [employer] [facility] Comment: No antibodies to T. pallidum [...] AM EDT 02/02/2023 10:34 AM EDT Narrative [employer] [facility] - 02/03/2023 5:14 AM EDT FASTING:YES [employer] [facility] - BLOOD DRAW Final Re sult Performing Organization Address [facility]/State/ZIP Co de Phone Number [employer] [address] [address], [place] [address] [address] * HIV 1/2 AG & AB W/RFLX (4TH GEN) (02/02/2023 10:33 AM EDT) HIV AG/AB, 4TH GEN NON-REAC TIVE NON-REAC TIVE [facility] Comment: HIV-1 antigen and HIV-1/HIV-2 antibodies [...] purpose. For additional information please refer to http://education.[employer]/faq/NTI644 (This link is being provided for informational/ educational purposes only.) The performance of this assay has not been clinically validated in patients less than 2 years old. Blood Blood / Unknown 02/02/2023 1 0:33 AM EDT 02/02/2023 10:34 AM EDT Narrative [employer] [facility] - 02/03/2023 5:14 AM EDT FASTING:YES [employer] [facility] - BLOOD DRAW Final Re sult Performing Organization Address City/[facility]/ZIP Co de Phone Number [employer] [address] [address], [employer] [address] [address] * HEPATITIS B SURFACE ANTIBODY (HBSAB) QUAL (02/02/2023 10:33 AM EDT) HEPATITIS B SURFACE ANTIBODY QL NON-REACT ARIANA NON-REACT ARIANA [employer] [facility] Blood Blood / Unknown 02/02/2023 1 0:33 AM EDT 02/02/2023 10:34 AM EDT Narrative [employer] - 02/03/2023 5:14 AM EDT FASTING:YES [employer]PER[employer] [facility] - BLOOD DRAW Edited R esult - Final Performing Organization Address City/[facility]/ZIP Co de Phone Number [employer] [address] [address], [place] [facility] [address] [place] [address] from Last 3 Months or Most Recently Relevant to Health Maintenance Care Teams Superintendent Concrete Mixing Plant Relationship Specialty Start Date End Date Jorge Delvalle PA-C [facility] [place] [address] PCP - General FAMILY MEDICINENUBIA 06/10/21
[2025-07-08 07:26] VITALS: BP 110/62; PULSE 68; O2SAT 98; BMI 23.4
--- NOTE | 2025-07-08 07:26 | MHC.PC.OV ---
Vital Signs 07/08/25 07:26 Height 5 ft 7.32 in Weight 151 lb BMI 23.4 BP 110/62 Blood Pressure Location Lt brachial Position Sitting Pulse 68 Pulse Source Pulse Oximeter Pulse Oximetry (%) 98 Oxygen Delivery Method Room Air Intake Visit Reasons: 6M f/u Depression Rn Registry Required: No Accompanied by: Self / Same As Patient Allergies No Known Allergies Allergy (Verified 07/08/25 07:32) Medication List - Last Reconciled 07/08/25 by Micki Torres MD clotrimazole-betamethasone 1-0.05 % 1 appl topical BID 4 weeks Tobacco use date assessed: 01/06/25 Dental Screening Dental Screen Date: 01/06/25 HPI HPI Comments History of Present Illness Details The patient is a 30-year-old male presenting for a follow-up visit and medication management. He reports no known drug allergies. The patient has a history of mild depression for which he has never consistently used medication. He started a medication a month ago but discontinued it on his own because it made him feel weird. He reports his depressive symptoms have since improved and he feels fine without medication. He has a history of eczema, which is managed with a cream. Recent lab results from January were normal. There was also a discussion regarding an injection that needs to be changed. He has persistent headaches follow by Neurology which recommended magnesium. He also complains of neck pain and will start physical therapy. He complains of lumbar pain that does not radiate to the legs and I will start him on physical therapy. Complains of hair loss and would like to see Dermatology. Counseling thinks his in the as autism spectrum disorder and he would like to get tested for it. [facility] Medical History (Updated 07/08/25 @ 07:43 by Micki Torres MD) Neck pain Surgical History No pertinent past surgical history Family History Mother Hypothyroidism Hypertension Carpal tunnel syndrome Gout CKD (chronic kidney disease) Father Diabetes Glaucoma CKD (chronic kidney disease) Pacemaker CHF (congestive heart failure) Social History Housing: House Alcohol intake: current Alcohol intake frequency: holidays/special occasions only Alcohol type: beer and wine Patient Tobacco Use Status: Never used Tobacco Tobacco use type: Cigarette e-Cigarette/Vaping Use: Never Used Second Hand Smoke Exposure: No service: No Current occupational status: employed Current occupational exposures/hazards: No Cognitive needs: No Hearing needs: No Vision needs: No Questionnaire PHQ-9 Over the last 2 weeks, how often have you been bothered by any of the following problems? 1. Little interest or pleasure in doing things: not at all 2. Feeling down, depressed, or hopeless: not at all 3. Trouble falling or staying asleep, or sleeping too much: not at all 4. Feeling tired or having little energy: more than half the days 5. Poor appetite or overeating: several days 6. Feeling bad about yourself - or that you are a failure or have let yourself or your family down: not at all 7. Trouble concentrating on things, such as reading the newspaper or watching television: more than half the days 8. Moving or speaking so slowly that other people could have noticed. Or the opposite - being so fidgety or restless that you have been moving around a lot more than usual: several days 9. Thoughts that you would be better off or of hurting yourself in some way: not at all Total score: 6 Depression Screening Interpretation: Positive Depression Screening Follow-up: Existing condition, New Medication prescribed and Follow-up Visit Requested Depression Screening Done: Yes 01860 - PHQ-9 Billing: Yes Source: Developed by Drs. Wyatt Nash, Gabi Barfield, George Adair and colleagues, with an educational vinicio from [employer]. Thrive Questionnaire Date Thrive assessed: 01/06/25 I am a: Patient What is your living situation today?: I have a steady place to live Within the past 12 months, did the food you bought not last and you didn't have the money to get more?: I choose not to answer this question Within the past 12 months, did you worry whether your food would run out before you got money to buy more?: I choose not to answer this question Do you have trouble paying for medicines?: I choose not to answer this question Do you have trouble getting transportation to medical appointments?: I choose not to answer this question Do you have trouble paying your heating and electricity bill?: I choose not to answer this question Do you have trouble taking care of your child, family member or friend?: I choose not to answer this question Do you have trouble with day-to-day activities such as bathing, preparing meals, shopping, managing finances, etc.?: I choose not to answer this question Are you currently unemployed and looking for a job?: I choose not to answer this question Are you interested in more education?: I choose not to answer this question Please select the resources that you would like help with: None Currently or been in a relationship where the following occur: I choose not to answer THRIVE Score: 0 TIEN-7 AMB Questionnaire TIEN-7 Date TIEN - 7 assessed: 01/06/25 Source: Developed by Drs. Wyatt Nash, Gabi Barfield, George Adair and colleagues, with an educational vinicio from [employer]. Review of Systems Const All systems reviewed & are unremarkable except as noted in HPI and below Card Denies chest pain at rest, Denies chest pain with activity, Denies edema, Denies irregular heart rhythm, Denies claudication, Denies dyspnea, Denies dyspnea on exertion, Denies orthopnea, Denies paroxysmal nocturnal dyspnea and Denies slow heart rate Resp Denies cough, Denies dyspnea and Denies dyspnea on exertion GI Denies abdominal pain, Denies change in bowel habits, Denies excessive flatus, Denies nausea and Denies vomiting Physical exam (Primary Care) Vital Signs: Last Vital Signs Pulse 68 07/08/25 07:26 BP 110/62 07/08/25 07:26 Pulse Ox 98 07/08/25 07:26 Oxygen Delivery Method Room Air 07/08/25 07:26 BMI result Body Mass Index 23.4 Tobacco/Smoking Status: Tobacco use Status Tobacco use date assessed 01/06/25 07/08/25 07:29 Patient Tobacco Use Status Never used Tobacco 07/08/25 07:29 Tobacco use type Cigarette 07/08/25 07:29 e-Cigarette/Vaping Use Never Used 07/08/25 07:29 PHQ-9: PHQ-9 Score PHQ-9: Total score 6 07/08/25 07:29 Depression Screening Interpretation: Positive Depression Screening Follow-up: Existing condition, New Medication prescribed and Follow-up Visit Requested Thrive Assessment: Date of Thrive Assessment Date Thrive assessed 01/06/25 07/08/25 07:29 Currently or been in a relationship where the following occur: I choose not to answer Resp Effort & Inspection: normal respiratory effort Auscultation: clear to auscultation bilaterally Cardio Jugular venous distension: no JVD Rate: regular rate Rhythm: regular rhythm Heart sounds: S1 normal heart sound present and S2 normal heart sound present Extrem General: Yes full ROM Coding Level of Care Code Est Pt Level 4 (29387) Diagnoses Mild recurrent major depression F33.0 New daily persistent headache G44.52 Neck pain M54.2 Lumbar pain M54.50 Hair loss L65.9 Autism spectrum disorder F84.0 Additional Codes PHQ-9 - 66179 - PHQ-9 Billing: Yes ([id number]) Time Spent (min) 22 Assessment & Plan Assessment & Plan (1) Mild recurrent major depression: Code(s): F33.0 - Major depressive disorder, recurrent, mild Category: Medical (2) New daily persistent headache: Comment: cervicogenic Code(s): G44.52 - New daily persistent headache (NDPH) Category: Medical (3) Neck pain: Code(s): M54.2 - Cervicalgia Category: Medical (4) Lumbar pain: Code(s): M54.50 - Low back pain, unspecified Category: Medical (5) Hair loss: Code(s): L65.9 - Nonscarring hair loss, unspecified Category: Medical (6) Autism spectrum disorder: Code(s): F84.0 - Autistic disorder Category: Medical Plan Plan 1. Depression The patient reports a history of mild depression. He recently self-discontinued an unspecified medication started a month ago due to side effects and reports his mood has improved. No new medications were prescribed at this time. 2. Eczema The patient uses a cream for eczema, and this will be continued. 3. Headaches Discussed the use of magnesium supplements, noting that magnesium glycinate is preferable to other forms to avoid stomach upset. The patient was advised to change an unspecified injection and was provided with paperwork to give to the front end developer designer. 4. Hair loss Referred to dermatology. 5. Neck pain Start physical therapy. 6. Lumbar pain Start physical therapy. 7. Autism spectrum disorder Referred to psych Orders: Orders PT Evaluation and Treatment Today M54.50 - Low back pain, unspecified Referrals Dermatology Referral L65.9 - Nonscarring hair loss, unspecified Psychiatry Outpatient Consultation Service F84.0 - Autistic disorder
== END 2025-07-08 07:46 | disposition home or self-care (01) ==
LOC: HO.HMCH 07:23
PROVIDERS: PCP Internal Medicine; Visit Provider Internal Medicine
DX: F33.0 Major depressive disorder, recurrent, mild (principal); G44.52 New daily persistent headache (NDPH); M54.2 Cervicalgia; M54.50 Low back pain, unspecified; L65.9 Nonscarring hair loss, unspecified; F84.0 Autistic disorder

== ENCOUNTER → 2025-07-08 07:23 | Outpatient (BNVA) | payer OTHER, SELFPAY | PROVIDERS: PCP Internal Medicine; Visit Provider Internal Medicine | DX: N48.1 Balanitis (principal); N48.6 Induration penis plastica; L30.9 Dermatitis, unspecified; F33.0 Major depressive disorder, recurrent, mild; G44.52 New daily persistent headache (NDPH); M54.2 Cervicalgia; L65.9 Nonscarring hair loss, unspecified; F84.0 Autistic disorder | CPT/HCPCS: 81003; 96127 ==

== ENCOUNTER 2025-07-08 08:00 | Outpatient (AMB) | payer OTHER, SELFPAY ==
--- NOTE | 2025-07-08 08:02 | MHC.OFFVIS ---
Intake Visit Reasons: 3m follow up Intake Note: Patient Is Present for Follow Up Balanitis Urology Med: clotrimazole-betamethasone Antibiotic Allergy: None Blood Thinner: None Outside Physical Damage Appraiser Required: No Accompanied by: Self / Same As Patient Allergies No Known Allergies Allergy (Verified 07/08/25 08:32) Medication List - Last Reconciled 07/08/25 by ABDULKADIR Green clotrimazole-betamethasone 1-0.05 % 1 appl topical BID 4 weeks HPI Comments Details: Ricardo is a pleasant 30-year-old male patient of Dr. Cardoza. He presents to the office today gfor a follow up.Of note, patient was seen approximately 4 months ago as a new patient for balanitis as well as Peyronie's disease at which time discussion regarding treatment options were discussed in reviewed. In discussion with the patient today he reports compliance with clotrimazole- betamethasone as prescribed and does feel this has been helpful in treatment of his balanitis. He denies any bothersome urinary issues. We did discussed further treatment options of balanitis as well as Peyronie's disease. We discussed risks and benefits of these treatment options. All questions were answered. We also discussed proper care. Patient with deviation/curvature to the penis when it is erect to the left side. In office urinalysis results reviewed with the patient today. He denies urinary urgency, urinary frequency, incontinence, nocturia, hematuria, dysuria, foul smelling urine, changes to urinary stream, flank pain, fever, and or chills. He is happy with her current voiding parameters. He otherwise offers no other issues or concerns at this time. [facility] Medical History Neck pain Surgical History No pertinent past surgical history Family History Mother Hypothyroidism Hypertension Carpal tunnel syndrome Gout CKD (chronic kidney disease) Father Diabetes Glaucoma CKD (chronic kidney disease) Pacemaker CHF (congestive heart failure) Social History Housing: House Alcohol intake: current Alcohol intake frequency: holidays/special occasions only Alcohol type: beer and wine Patient Tobacco Use Status: Never used Tobacco Tobacco use type: Cigarette e-Cigarette/Vaping Use: Never Used Second Hand Smoke Exposure: No service: No Current occupational status: employed Current occupational exposures/hazards: No Cognitive needs: No Hearing needs: No Vision needs: No Review of Systems Const All systems reviewed & are unremarkable except as noted in HPI and below Physical Exam Const General: cooperative, healthy appearing, comfortable, no acute distress, well developed, alert and awake Orientation/consciousness: patient oriented x3 Limitations: no limitations HEENT Head: Yes normal to inspection, Yes normocephalic and Yes atraumatic Ears: hearing grossly normal bilaterally Eyes General: appearance normal, both eyes and all related structures Neck Neck: Yes normal visual inspection and Yes trachea midline Chest Chest palpation & inspection: normal inspection of the chest Resp Effort & Inspection: normal respiratory effort and able to speak in complete sentences Cardio Rate: regular rate GI Inspection: Yes normal to inspection Other: as per HPI General: Yes no CVA tenderness Back/Spine/Pelvis Back: no CVA tenderness Skin General skin exam: no rashes or lesions noted Neuro General: patient oriented x3 Extrem General: Yes normal to inspection Psych Appearance: grossly normal and well kempt Mental Status: mental status grossly normal Speech and movement: Normal speech and movement present and Clear speech present Affect: normal affect Attitude: cooperative Thought process: Normal thought process present Thought content: Normal thought content present Insight: Fair insight present (Psych) Judgement: Fair judgement present (Psych) Results AMB Urinalysis, Automated UA Leukoctes 0 [place]/uL Last Edit by TRISTEN Kuhn on 07/08/25 08:07 UA Nitrite Negative Last Edit by TRISTEN Kuhn on 07/08/25 08:07 UA Urobilinogen 0.2 mg/dL Last Edit by TRISTEN Kuhn on 07/08/25 08:07 UA Protein 15 mg/dL Last Edit by TRISTEN Kuhn on 07/08/25 08:07 UA pH 6.0 Last Edit by TRISTEN Kuhn on 07/08/25 08:07 UA Blood 0 Arsh/uL Last Edit by TRISTEN Kuhn on 07/08/25 08:07 UA Specific [place] 1.025 Last Edit by TRISTEN Kuhn on 07/08/25 08:07 UA Ketone Negative Last Edit by TRISTEN Kuhn on 07/08/25 08:07 UA Bilirubin 0 mg/dL Last Edit by ANNIA KuhnA on 07/08/25 08:07 UA Glucose 0 mg/dL Last Edit by TRISTEN Kuhn on 07/08/25 08:07 Results Reviewed Results Reviewed: Laboratory Last Values Urine pH (Auto) 6.0 07/08/25 08:03 Specific [place] (Auto) 1.025 07/08/25 08:03 Urine Protein (Auto) 15 mg/dL 07/08/25 08:03 Glucose (UA)(Auto) 0 mg/dL 07/08/25 08:03 Urine Ketones (Auto) Negative 07/08/25 08:03 Urine Blood (Auto) 0 Arsh/uL 07/08/25 08:03 Urine Nitrite (Auto) Negative 07/08/25 08:03 Urine Bilirubin (Auto) 0 mg/dL 07/08/25 08:03 Urine Urobilinogen (Auto) 0.2 mg/dL 07/08/25 08:03 Leukocyte Esterase (Auto) 0 [place]/uL 07/08/25 08:03 Assessment & Plan Assessment & Plan (1) Balanitis: Code(s): N48.1 - Balanitis Category: Medical (2) Peyronie's disease: Code(s): N48.6 - Induration penis plastica Category: Medical Plan In office urinalysis results reviewed with the patient today; as noted above. We did discuss Peyronie's as well as balanitis; we discussed further treatment options and risks and benefits of these treatment options. All questions were answered He denies any bothersome urinary issues. He reports be happy with current voiding parameters. Continue Clomitrazole-betaethasone as discussed and prescribed ; we did discuss utilizing PRN We discussed proper hygiene. Follow-up in 6 months; or sooner with any issues, concerns, and or questions. Orders: Orders AMB Urinalysis Automated Today Z13.9 - Encounter for screening, unspecified Patient Instructions: The patient had an opportunity to ask questions regarding the treatment plan. All questions were answered. Physical exam, labs, and imaging were discussed and reviewed in detail. As well as risks, benefits, and discussion of treatment choices. No major barriers to understanding were identified. The patient expressed understanding and agreement with the above treatment plan. The patient was made aware they should contact our office by phone for worsening of their current condition, the appearance of new symptoms, or with any questions or concerns. Compliance is encouraged with any medications and follow up testing that is ordered. It is a privilege to be allowed the opportunity to participate in? your urological care.? Again, if you have any questions or concerns If you have any questions or concerns please do not hesitate to contact me. The office is [phone]. This note is constructed using voice recognition software. While every effort has been made to ensure accuracy decorative engraver errors may have been included. Yours sincerely, ABDULKADIR Green Coding Level of Care Code Est Pt Level 3 (01824) Diagnoses Balanitis N48.1 Peyronie's disease N48.6
== END 2025-07-08 08:23 | disposition home or self-care (01) ==
LOC: HO.HUSH 08:00
PROVIDERS: PCP Internal Medicine; Visit Provider Nurse Practitioner Family
DX: N48.1 Balanitis (principal); N48.6 Induration penis plastica; Z13.9 Encounter for screening, unspecified
CPT/HCPCS: 99213